=== PATIENT | male | born 1955 | race African-American/Black ===

== ENCOUNTER 2022-12-23 22:55 | Emergency (ER) | payer BC, OTHER ==
[~2022-12-23] VITALS: Ht 170.2 cm; Wt 67.1 kg
[2022-12-23 23:02] VITALS: BP_SYST 96; PULSE 85; RESP 18; TEMP 99.7; O2SAT 96
== END 2022-12-23 23:50 | disposition home or self-care (01) ==
LOC: SED 22:55
DX: R05.9 Cough, unspecified (principal); J45.909 Unspecified asthma, uncomplicated; R50.9 Fever, unspecified; E11.9 Type 2 diabetes mellitus without complications; I10 Essential (primary) hypertension; E78.5 Hyperlipidemia, unspecified; Z79.899 Other long term (current) drug therapy
CPT/HCPCS: 71045; 99283